=== PATIENT | male | born 1955 | race Caucasian/White ===

== ENCOUNTER → 2016-08-22 | Outpatient (CLI) | payer MEDICARE ==
[~2016-08-22] MED LIST: ALPR1TAB2 PO; ASPI-650 PO; CARV-39 PO; HYDR-3240 PO; HYDR10TA4 PO; LISI-167 PO; LOVA20TA2 PO; MULT-750 PO; OXYC-302 PO; TAMS-11 PO
== END | disposition home or self-care (01) ==
LOC: RAD 08:24
PROVIDERS: ATTEND Physician Assistant Medical
DX: R10.9 Unspecified abdominal pain (principal)
CPT/HCPCS: 74000